=== PATIENT | male | born 1995 | race Caucasian/White ===

== ENCOUNTER 2016-08-23 00:42 | Emergency (ER) | payer BC ==
[2016-08-23] MEDS ORDERED: HYDROcodone 7.5MG/APAP 325MG 1 EA TAB PO ONE (01:02)
[2016-08-23] MEDS ORDERED: IBUPROFEN 200 MG TAB PO ONE (01:02)
[2016-08-23 01:16] VITALS: BP 108/69; TEMP 98.2; O2SAT 97
--- NOTE | 2016-08-23 01:35 | RAD ---
EXAM DESCRIPTION: Thumb,Right CLINICAL HISTORY: crush injury, no laceration COMPARISON: None FINDINGS: AP, lateral and oblique views of the right thumb were submitted. There is an acute nondisplaced fracture of the proximal aspect of the distal phalanx of the right thumb. Bone mineralization is within normal limits. There is no radiopaque foreign body material. IMPRESSION: Nondisplaced fracture of the distal phalanx of the right thumb. Electronically signed by: Lee Castillo MD 08/23/2016 1:36 AM CDT
--- NOTE | 2016-08-23 01:49 | ED.PDOC ---
History of Present Illness - General Chief Complaint: Upper Extremity Injury Stated Complaint: Smashed R thumb tonight Time Seen by Provider: 08/23/16 00:58 Source: patient Exam Limitations: no limitations - History of Present Illness Initial Comments: The patient is a 21-year-old male presenting to the emergency room secondary to pain in his right thumb. The patient crashed his right thumb while working. there is bruising under the thumbnail and surrounding the distal interphalangeal joint. He does have some decreased sensation to the distal palmar aspect of the thumb. Mild swelling is present but no other deformity. Capillary refill is within normal limits. Motor function does appear to be preserved limited by swelling. Most pain is present at the distal interphalangeal joint. Some pain is present at the proximal interphalangeal joint. No lacerations. Occurred: this evening Pain - Upper Extremity: moderate: Hand, right Method of Injury: direct blow Improving Factors: immobilization Worsening Factors: movement Allergies/Adverse Reactions: Allergies Cephalosporins Allergy (Verified 10/10/15 20:30) Home Medications: Ambulatory Orders Pbixnlrimxspe-Emje-Rstcmfvklw [Fioricet] 1 ea PO Q8H PRN #21 tab 08/23/16 Review of Systems - Review of Systems Constitutional: States: no symptoms reported EENTM: States: no symptoms reported Respiratory: States: no symptoms reported Cardiology: States: no symptoms reported Gastrointestinal/Abdominal: States: no symptoms reported Genitourinary: States: no symptoms reported Musculoskeletal: States: see HPI Skin: States: see HPI Neurological: States: see HPI Endocrine: States: no symptoms reported All other Systems: No Change from Baseline Past Medical History (General) - Patient Medical History Hx Stroke: No Hx Cardiac Disorders: No Hx Congestive Heart Failure: No Hx Diabetes: No Hx Gastroesophageal Reflux: No Hx Cancer: No Hx Hepatitis C: No Surgical History: no surgical history - Vaccination History Hx Tetanus, Diphtheria Vaccination: Yes Hx Influenza Vaccination: No Hx Pneumococcal Vaccination: No Immunizations Up to Date: Yes - Social History Hx Tobacco Use: Yes Hx Chewing Tobacco Use: Yes - 1 can per day Hx Alcohol Use: No Hx Substance Use: No Hx Substance Use Treatment: No Hx Depression: No Feels Threatened In Home Enviroment: No Feels Threatened In a Relationship: No Hx Physical Abuse: No Hx Emotional Abuse: No Hx Suspected Abuse: No - Female History Patient : No Family Medical History - Family History Mother Family History: Unknown Living Status: Unknown Physical Exam - Physical Exam General Appearance: Alert, Comfortable, No apparent distress Eyes, Ears, Nose, Throat Exam: PERRL/EOMI Neck: full range of motion Cardiovascular/Respiratory: normal peripheral pulses, no respiratory distress Elbow/Forearm Exam: normal inspection, non-tender, no evidence of injury, normal ROM Wrist Exam: normal inspection, non-tender, no evidence of injury, normal ROM Hand Exam: bone tenderness, ecchymosis, soft tissue tenderness, swelling - see history of present illness Neuro/Tendon: normal motor functions, normal tendon functions, responds to pain , sensory deficit - as per history of present illness Mental Status: alert, oriented x 3 Skin Exam: normal color - with the exception of bruising Comments: Vital Signs - 24 hr 08/23/16 01:12 Temperature 98.2 F Pulse Rate [L 72 Arm] Blood Pressure 108/69 [L Arm] O2 Sat by Pulse 97 Oximetry Progress - Progress Progress: 08/23/16 01:59 the patient is a 21-year-old male presenting to the emergency room secondary to a closed minimally displaced fracture of the proximal distal phalanx of the right thumb secondary to crush injury. He does have some decreased sensation to the palmar aspect of the distal thumb. motor function appears preserved. He appears to be vascularly intact. The patient will be placed in a finger splint to allow for healing. He needs to follow-up with his primary care doctor in 2 weeks for reevaluation. Motrin can be used for pain control and he will also be written for Fioricet for as needed use. As is, surgical repair at this time seems unwarranted. ER warnings are given for any acute worsening - EKG/XRAY/CT CT Ordered: No CT Interpretation Call Back: No Departure - Departure Clinical Impression: Closed fracture of hand Qualifiers: Encounter type: initial encounter Laterality: right Qualified Code(s): S62.91XA - Unspecified fracture of right wrist and hand, initial encounter for closed fracture Disposition: Discharge to Home or Self Care Condition: Fair Departure Forms: ED Discharge - Pt. Copy, Patient Portal Self Enrollment Instructions: Finger Fracture Diet: regular diet Activity: no pushing/pulling with affected limb Referrals: [facility] INSTRUMENTATION [facility] CONTROL TECHNICIAN [Primary Care Provider] - 1-2 Weeks Prescriptions: Vpmloxnfwmymg-Iako-Yxlzomltxl [Fioricet] 1 ea PO Q8H PRN #21 tab PRN Reason: Pain Home Medications: Ambulatory Orders Dhkgyovlyzuox-Wfes-Aevnzsdwwz [Fioricet] 1 ea PO Q8H PRN #21 tab 08/23/16 Additional Instructions: the patient is a 21-year-old male presenting to the emergency room secondary to a closed minimally displaced fracture of the proximal distal phalanx of the right thumb secondary to crush injury. He does have some decreased sensation to the palmar aspect of the distal thumb. motor function appears preserved. He appears to be vascularly intact. The patient will be placed in a finger splint to allow for healing. He needs to follow-up with his primary care doctor in 2 weeks for reevaluation. Motrin can be used for pain control and he will also be written for Fioricet for as needed use. As is, surgical repair at this time seems unwarranted. ER warnings are given for any acute worsening
== END 2016-08-23 02:14 | disposition home or self-care (01) ==
LOC: ER 00:42
DX: S62.522A Displaced fracture of distal phalanx of left thumb, initial encounter for closed fracture (principal); F17.220 Nicotine dependence, chewing tobacco, uncomplicated; W23.0XXA Caught, crushed, jammed, or pinched between moving objects, initial encounter; Y99.0 Civilian activity done for income or pay

== ENCOUNTER 2018-02-09 10:17 | Emergency (ER) | payer SELFPAY ==
--- NOTE | 2018-02-09 10:37 | ED.PDOC ---
History of Present Illness - General Chief Complaint: Lower Extremity Injury Stated Complaint: left knee pain Time Seen by Provider: 02/09/18 10:36 Source: patient Exam Limitations: no limitations - History of Present Illness Initial Comments: Rodney Michelle 22 y/o male came to ER with sharp left knee pain after tripping on fence wire at work at [employer] twisted left knee inwards.Had pain and unable to straighten left knee since incident.Denies any pain else where stated did not fall after tripping. Occurred: yesterday Pain - Lower Extremity: moderate: Left Knee Method of Injury: twisted Improving Factors: rest Worsening Factors: movement Associated Symptoms: see hpi Allergies/Adverse Reactions: Allergies Cephalosporins Allergy (Verified 02/09/18 10:39) Rash Home Medications: Ambulatory Orders Tramadol HCl 50 mg PO TID PRN #20 tab 02/09/18 Review of Systems - Review of Systems Constitutional: States: no symptoms reported EENTM: States: no symptoms reported Respiratory: States: no symptoms reported Cardiology: States: see HPI Gastrointestinal/Abdominal: States: no symptoms reported Genitourinary: States: no symptoms reported Musculoskeletal: States: see HPI, joint pain - left knee Past Medical History (General) - Patient Medical History Hx Stroke: No Hx Cardiac Disorders: No Hx Congestive Heart Failure: No Hx Diabetes: No Hx Gastroesophageal Reflux: No Hx Cancer: No Hx Hepatitis C: No Surgical History: no surgical history - Vaccination History Hx Tetanus, Diphtheria Vaccination: Yes Hx Influenza Vaccination: No Hx Pneumococcal Vaccination: No - Social History Hx Tobacco Use: Yes Hx Chewing Tobacco Use: Yes - 1 can per day Hx Alcohol Use: No Hx Substance Use: No Hx Substance Use Treatment: No Hx Depression: No Hx Physical Abuse: No Hx Emotional Abuse: No Hx Suspected Abuse: No - Female History Patient : No Family Medical History - Family History Mother Family History: Unknown Living Status: Unknown Hx Family Hypertension: Yes - parents Physical Exam - Physical Exam General Appearance: Alert, Comfortable, No apparent distress Eyes, Ears, Nose, Throat: normal ENT inspection Neck: full range of motion, supple, normal inspection Cardiovascular/Respiratory: regular rate, rhythm, no M/R/G, normal peripheral pulses, no JVD Gastrointestinal/Abdominal: non-tender, no organomegaly Back: normal inspection, no CVA tenderness, no vertebral tenderness Thigh/Hip: normal inspection, non-tender, no evidence of injury Leg: normal inspection, non-tender, no evidence of injury Knee: limited ROM - painful lef knee, pain, soft tissue tenderness, other - negative estephanie and anterior drawer test Mental Status: alert, oriented x 3 Skin: normal color, warm/dry Progress - Progress Progress: 02/09/18 10:50 Vital Signs - 8 hr 02/09/18 10:34 Temperature 98.3 F Pulse Rate [ 90 Left Radial] Respiratory 20 Rate Blood Pressure 119/82 [Left Arm] O2 Sat by Pulse 97 Oximetry - EKG/XRAY/CT XRAY: knee - left no fracture /dislocation Departure - Departure Clinical Impression: Sprain of left knee Qualifiers: Encounter type: initial encounter Involved ligament of knee: unspecified ligament Qualified Code(s): S83.92XA - Sprain of unspecified site of left knee, initial encounter Time of Disposition: 11:26 Disposition: Discharge to Home or Self Care Condition: Good Departure Forms: ED Discharge - Pt. Copy, Patient Portal Self Enrollment Instructions: Knee Sprain (DC) Referrals: [facility] RENAL CASE MANAGER [Primary Care Provider] - 1-2 Weeks Prescriptions: Tramadol HCl 50 mg PO TID PRN #20 tab PRN Reason: Pain Home Medications: Ambulatory Orders Tramadol HCl 50 mg PO TID PRN #20 tab 02/09/18 Additional Instructions: Need to call Dr. Valadez office 13 February 2018 for further Ortho evaluation
[2018-02-09 10:44] VITALS: BP 119/82; TEMP 98.3; O2SAT 97
--- NOTE | 2018-02-09 11:11 | RAD ---
EXAM DESCRIPTION: Knee,Left 2 or More Views CLINICAL HISTORY: 22 years, Male, pain COMPARISON: None TECHNIQUE: Three views of the left knee FINDINGS: No fracture or dislocation. Bones appear normally mineralized with normal trabecular pattern. Normal appearance of medial and lateral compartments on frontal view. Lateral view shows normal position of the patella. No patellar spurring or enthesopathy. No suprapatellar knee joint effusion. Normal contour of quadriceps and patellar tendons. No abnormal patellar tilt or subluxation on patellar sunrise view. IMPRESSION: Negative for fracture or dislocation. Electronically signed by: Jerry Rosenbaum MD 02/09/2018 11:09 AM [facility]
== END 2018-02-09 11:45 | disposition home or self-care (01) ==
LOC: ER 10:17
DX: S83.92XA Sprain of unspecified site of left knee, initial encounter (principal); Z87.891 Personal history of nicotine dependence; W18.40XA Slipping, tripping and stumbling without falling, unspecified, initial encounter; Y92.69 Other specified industrial and construction area as the place of occurrence of the external cause; Y99.0 Civilian activity done for income or pay; Z88.1 Allergy status to other antibiotic agents